=== PATIENT | male | born 2000 | race Caucasian/White ===

== ENCOUNTER 2020-05-30 17:03 | Emergency (ER) | payer SELFPAY ==
[~2020-05-30] VITALS: Ht 182.9 cm; Wt 61.2 kg
[2020-05-30 17:05] VITALS: BP 111/61
[2020-05-30 17:34] VITALS: BP 111/61
== END 2020-05-30 17:34 | disposition home or self-care (01) ==
LOC: MED 17:03
DX: S00.412A Abrasion of left ear, initial encounter (principal); H72.92 Unspecified perforation of tympanic membrane, left ear; X58.XXXA Exposure to other specified factors, initial encounter; Y93.89 Activity, other specified; Y92.89 Other specified places as the place of occurrence of the external cause; Y99.8 Other external cause status
CPT/HCPCS: 99283